=== PATIENT | female | born 1970 | race Caucasian/White ===

== ENCOUNTER 2017-05-28 10:51 | Emergency (ER) | payer BC ==
[~2017-05-28] VITALS: Ht 172.7 cm; Wt 72.6 kg
[2017-05-28 10:51] VITALS: BP_SYST 151
--- NOTE | 2017-05-28 10:55 | NUR ---
BROUGHT BACK TO BED #7 AND TRIAGED. REPORT GIVEN TO KAYLEN
--- NOTE | 2017-05-28 11:32 | NUR ---
DR ANNA AT BEDSIDE FOR EVALUATION
[2017-05-28 12:36] VITALS: BP_SYST 117
--- NOTE | 2017-05-28 12:37 | NUR ---
Patient given written and verbal discharge instructions and verbalizes understanding. ER MD discussed with patient the results and treatment provided. Patient in stable condition. ID arm band removed. Rx of tylenol given. Patient educated on pain management and to follow up with PMD. Pain Scale . Opportunity for questions provided and answered.
== END 2017-05-28 12:37 | disposition home or self-care (01) ==
LOC: SED 10:51
DX: S82.62XA Displaced fracture of lateral malleolus of left fibula, initial encounter for closed fracture (principal); R03.0 Elevated blood-pressure reading, without diagnosis of hypertension; M06.9 Rheumatoid arthritis, unspecified; L93.0 Discoid lupus erythematosus; H91.3 Deaf nonspeaking, not elsewhere classified; Z88.5 Allergy status to narcotic agent; W10.9XXA Fall (on) (from) unspecified stairs and steps, initial encounter; Y93.01 Activity, walking, marching and hiking; Y92.89 Other specified places as the place of occurrence of the external cause; Y99.8 Other external cause status
CPT/HCPCS: 73590-TC; 99284